=== PATIENT | female | born 1950 | race Caucasian/White ===

== ENCOUNTER 2020-05-31 04:57 | Inpatient (IN) | payer BC, OTHER ==
[2020-05-27 16:12] VITALS: BMI 30.9
[2020-05-31 07:19] LABS: INR 1.03 (0.83-1.09); PROTHROMBIN TIME (PATIENT) 12.6 SEC (9.7-13.0)
[2020-05-31 07:22] LABS: ACTIVATED PTT 30.6 SECONDS (25.2-36.5)
[2020-05-31] MEDS ORDERED: fentaNYL CITRATE 250 MCG/5 ML VIAL ONE (07:29)
[2020-05-31] MEDS ORDERED: EPHEDRINE SULFATE/0.9% NACL/PF 50 MG/10 ML SYRINGE NR ONE (07:30)
[2020-05-31] MEDS ORDERED: ROCURONIUM BROMIDE 50 MG/5 ML SYRINGE ONE (07:30)
[2020-05-31] MEDS ORDERED: SUCCINYLCHOLINE CHLORIDE 200 MG/10 ML SYRINGE ONE (07:30)
[2020-05-31] MEDS ORDERED: PROPOFOL 20 ML ONE ×2 (07:30)
[2020-05-31] MEDS ORDERED: MIDAZOLAM HCL 2 MG/2 ML SINGLE DOSE VIAL ONE ×2 (08:19)
[2020-05-31] MEDS ORDERED: CEFAZOLIN 2 GM/D5W 2 GM/50 ML ML IVPB ONE (08:27)
[2020-05-31] MEDS ORDERED: ceFAZolin SODIUM 1 GM VIAL IVPB ONE (08:40)
[2020-05-31] MEDS ORDERED: NEOSTIGMINE METHYLSULFATE 0.5 MG/ML - 10 ML MDV ONE ×2 (10:08)
[2020-05-31] MEDS ORDERED: traMADol HCL 50 MG TABLET PO PRN (10:39)
[2020-05-31] MEDS ORDERED: ONDANSETRON 4 MG/2 ML VIAL IVPUSH PRN (10:39)
[2020-05-31] MEDS ORDERED: HYDROmorphone HCL 2 MG TABLET PO PRN ×2 (10:41)
[2020-05-31] MEDS ORDERED: ACETAMINOPHEN 325 MG TABLET (FP) PO SCH (10:45)
[2020-05-31] MEDS ORDERED: BUPIVACAINE HCL/PF 0.5% (5MG/ML) 10 ML VIAL IJ ONE (10:50)
[2020-05-31] MEDS ORDERED: ACETAMINOPHEN 1000 MG/100 ML VIAL (NON FORMULARY) IVPB ONE (11:24)
[2020-05-31] MEDS: LACTATED RINGERS SOLUTION 1,000 ML IV SCH (13:39)
[2020-05-31] MEDS ORDERED: HYDROmorphone *PCA* 10MG/50ML DISP.SYRIN PCA SCH (17:15)
[2020-05-31] MEDS: CEFAZOLIN 2 GM/D5W 2 GM/50 ML ML IVPB SCH (17:42)
[2020-05-31] MEDS: ACETAMINOPHEN 1000 MG/100 ML VIAL (NON FORMULARY) IVPB SCH ×2 (18:14→23:14)
[2020-05-31] MEDS: KETOROLAC TROMETHAMINE 30 MG/1 ML VIAL IM SCH (18:23)
[2020-06-01] MEDS: KETOROLAC TROMETHAMINE 30 MG/1 ML VIAL IM SCH (01:59)
[2020-06-01] MEDS: CEFAZOLIN 2 GM/D5W 2 GM/50 ML ML IVPB SCH ×2 (02:33→09:39)
[2020-06-01] MEDS: ACETAMINOPHEN 1000 MG/100 ML VIAL (NON FORMULARY) IVPB SCH ×2 (06:30→12:17)
[2020-06-01] MEDS: LEVOTHYROXINE NA 100 MCG TABLET (FP) PO SCH (06:31)
[2020-06-01] MEDS: LACTATED RINGERS SOLUTION 1,000 ML IV SCH (06:31)
[2020-06-01] MEDS ORDERED: IBUPROFEN 800 MG/8 ML IJ IVPB PRN (09:59)
[2020-06-01] MEDS: ENOXAPARIN NA (PORCINE) 40 MG/0.4 ML DISP.SYRIN SQ SCH (10:16)
[2020-06-01 10:17] LABS: HEMOGLOBIN 11.5 GM/dL (10.7-15.3); MCH 30.6 pg (25.7-33.7); MCHC 33.8 g/dl (32.0-36.0); MEAN CELL VOLUME 90.6 fl (80-96); MEAN PLT VOLUME 8.1 fl (7.5-11.1); PLATELET COUNT 264 K/MM3 (134-434); RBC 3.75 M/mm3 (3.60-5.2); RDW 12.9 % (11.6-15.6); WHITE BLOOD COUNT 10.9 K/mm3 (4.0-10.0)
[2020-06-01 10:38] LABS: BLOOD UREA NITROGEN 12.4 mg/dL (7-18)
[2020-06-01 10:42] LABS: BILIRUBIN,TOTAL 0.4 mg/dL (0.2-1)
[2020-06-01 10:43] LABS: TOT PROT 5.8 g/dl (6.4-8.2)
[2020-06-01] MEDS ORDERED: BISACODYL 10 MG SUPP.RECT PR ONE (20:41)
[2020-06-01] MEDS: IBUPROFEN 600 MG TABLET (FP) PO PRN (21:26)
[2020-06-01] MEDS ORDERED: LOSARTAN POTASSIUM 50 MG TABLET PO SCH (22:00)
[2020-06-02] MEDS: ACETAMINOPHEN 325 MG TABLET (FP) PO PRN ×2 (04:19→09:14)
[2020-06-02] MEDS: IBUPROFEN 600 MG TABLET (FP) PO PRN (04:20)
[2020-06-02] MEDS: LEVOTHYROXINE NA 100 MCG TABLET (FP) PO SCH (06:17)
[2020-06-02 09:09] VITALS: BP 137/78; PULSE 73; TEMP 98
[2020-06-02] MEDS: ENOXAPARIN NA (PORCINE) 40 MG/0.4 ML DISP.SYRIN SQ SCH (09:09)
== END 2020-06-02 11:15 | disposition home or self-care (01) | DRG 743 ==
LOC: J2C 04:57 → J3W 13:31
PROVIDERS: ADMIT Obstetrics & Gynecology; ATTEND Obstetrics & Gynecology
PROC: 0UT70ZZ Resection of Bilateral Fallopian Tubes, Open Approach (ICD-10-PCS; 2020-05-31)
PROC: 0UT10ZZ Resection of Left Ovary, Open Approach (ICD-10-PCS; 2020-05-31)
PROC: 0UT90ZZ Resection of Uterus, Open Approach (ICD-10-PCS; principal; 2020-05-31 08:00)
DX: D25.1 Intramural leiomyoma of uterus (principal); R10.2 Pelvic and perineal pain; N84.1 Polyp of cervix uteri
CPT/HCPCS: 36415; 80053; 85027; 85610; 85730; 86850; 86900; 86901; 88108; 88305-TC; 88307-TC; 94010; 94760; J0131